=== PATIENT | female | born 1995 | race Caucasian/White ===

== ENCOUNTER 2022-08-11 21:05 | Emergency (ER) | payer BC, SELFPAY ==
[2022-08-11 21:13] VITALS: BP 130/65; PULSE 79; RESP 16; TEMP 36.9; O2SAT 100
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
[2022-08-11] MEDS: ONDANSETRON 4 MG ODT PO (23:32)
[2022-08-11] MEDS: ACETAMINOPHEN 325 MG TABLET 650 MG PO (23:32)
[2022-08-11] MEDS: ONDANSETRON 4 MG ODT PREPACK 1 BOTTLE MISC (23:32)
== END 2022-08-11 23:29 | disposition home or self-care (01) ==
PROVIDERS: Emergency Provider Emergency Medicine
DX: S06.0X0A Concussion without loss of consciousness, initial encounter (principal); S40.212A Abrasion of left shoulder, initial encounter; R11.2 Nausea with vomiting, unspecified; V19.9XXA Pedal cyclist (driver) (passenger) injured in unspecified traffic accident, initial encounter
CPT/HCPCS: 99283